=== PATIENT | female | born 1995 | race Caucasian/White ===

== ENCOUNTER 2020-07-11 16:03 | Emergency (ER) | payer OTHER ==
[~2020-07-11] VITALS: Ht 160 cm; Wt 50.2 kg
--- NOTE | 2020-07-11 16:15 | PHYS DOC ---
Adult General Chief Complaint Chief Complaint: ABDOMINAL PAIN IN HPI HPI Patient is a 25-year-old female presents to the emergency department complaining of low abdomen cramping that started last night before she went to bed. Patient reports her cramping pain at a 6/10 on a 1-10 scale. Patient states she is per home test, reporting her last menstrual cycle ended on May 14. Patient states this could be her second and has 1 child, reports problems with miscarriage concerns during her first however had healthy baby at 39-1/2 weeks 3 years ago. Patient reports today when she found out she was she went to the [facility] who directed her straight to the emergency department for a work-up concerning her cramping during . Patient denies vaginal discharge, denies STI concerns, complains of increased frequency for the past 3 days. Denies seeing blood in he r urine. Patient states she is nauseated. Denies vomiting or diarrhea, patient states she has had problems with constipation most of her life. Patient denies any family history of PCOS, vaginal or uterine or cervical cancers. Review of Systems Review of Systems 14 body systems of review of systems have been reviewed. See HPI for pertinent positives and negative responses, otherwise all other systems are negative, nonpertinent or noncontributory. Allergies Allergies Allergies Coded Allergies Type Severity Reaction Last Updated Verified No Known Drug Allergies 07/11/20 No Physical Exam Physical Exam Constitutional: Well developed, well nourished, no acute distress, non-toxic appearance. 25-year-old female in no apparent distress. HENT: Normocephalic, atraumatic, bilateral external ears normal, oropharynx moist, no oral exudates, nose normal. Oropharynx moist, pink, no signs of infectious process appreciated, bilateral TMs within normal limits, no drainage from bilateral external auditory canals, bilateral nasal turbinates moist, nonerythematous, no drainage, no lymphadenopathy of the head or neck appreciated. Eyes: PERRLA, EOMI, conjunctiva normal, no discharge. Neck: Normal range of motion, no tenderness, supple, no stridor. No meningismus signs, no nuchal rigidity appreciated. Cardiovascular:Heart rate regular rhythm, no murmur, heart sounds S1-S2 to auscultation. Lungs & Thorax: Bilateral breath sounds clear to auscultation, all lung hicks, no adventitious lung sounds appreciated. Abdomen: Bowel sounds normal, soft, no tenderness, no masses, no pulsatile masses. Pain to low pelvic area just above the symphysis pubis. Skin: Warm, dry, no erythema, no rash. Back: No CVA tenderness on the left or right, low back pain to palpation to the left and right of lumbar spine, no midline spinal tenderness appreciated. Extremities: No tenderness, no cyanosis, no clubbing, ROM intact, no edema. Distal cap refill less than 2 seconds, +2/4 pulses. Neurologic: Alert and oriented X 3, normal motor function, normal sensory function, no focal deficits noted. Psychologic: Affect normal, judgement normal, mood normal. : Pelvic examination performed with female ED nurse at bedside, no rashes lesions or abnormalities of the external vagina or adjacent structures, no discharge noted, speculum exam noted white cheeselike discharge along vaginal arellano, no lesions, erythema appreciated, GC chlamydia and wet prep was obtained, no cervical motion tenderness or left-sided or right-sided adnexal pain appreciated during bimanual exam. EKG EKG [] Radiology/Procedures Radiology/Procedures PATIENT: YAKOV LANDRY BACCOUNT: [id number] : 1995 LOCATION: ER AGE: 25 SEX: F EXAM STATUS: REG ER ORD. PHYSICIAN: GERI HENSLEY APRN REASON: LOW PELVIC CRAMPING 6 WKS PREG PROCEDURE: OB <14 WKS W/TV Exam: Ultrasound OB less than 14 weeks Indication: Lower pelvic pain, cramping for 6 weeks Technique: Real-time grayscale and color Doppler images of the pelvis were obtained by the department cut in station operator. Comparisons: None FINDINGS: Uterus measures 9.7 x 6.9 x 6.4 cm. Within the endometrium there is a gestational sac with yolk sac and pole. Ko Vaya-rump length measured at 1.0 cm corresponding to 7 weeks 0 days gestation. heart rate measured at 133 bpm. Right ovary measures 4.3 x 2.6 x 1.9 cm. Left ovary measures 2.0 x 1.9 x 1.8 cm. Vascular flow identified within the ovaries bilaterally. No free fluid identified in the pelvis. IMPRESSION: 1. Single live intrauterine gestation measuring 7 weeks 0 days by current ultrasound. 2. Dedicated survey is recommended at 18-20 weeks gestation. Electronically signed by: Jaylene Goins MD (07/11/2020 5:15 PM) [facility] DICTATED AND SIGNED BY: JAYLENE GOINS MD DATE: 07/11/201712 CC: GERI HENSLEY APRN; EMERGENCY,DEPARTMENT; NON,STAFF ~MTH0 0 Heart Score C/O Chest Pain: No Risk Factors: Risk Factors: DM, Current or recent (<one month) smoker, HTN, HLP, family history of CAD, obesity. Risk Scores: Risk Factors: DM, Current or recent (<one month) smoker, HTN, HLP, family history of CAD, obesity. Course & Med Decision Making Course & Med Decision Making Pertinent Labs and Imaging studies reviewed. (See chart for details) 25-year-old female, vital signs reviewed, presents emergency department concern of low abdominal cramping during . Physical examination concerning for STI versus UTI versus threatened miscarriage, a urinalysis assay was ordered, lab work with beta hCG quant, CBC, BMP, OB less than 14 weeks ultrasound study. STI cultures obtained during pelvic examination wet prep, GC/chlamydia. Radiology report of ultrasound study shows 7-week IUP, no other abnormalities noted per radiology interpretation. Patient is wet prep negative, will start patient on vitamin, as needed Zofran on for nausea, will give patient follow-up SENIOR SALES COMPENSATION ANALYST. Diagnosis abdominal cramping, first trimester , nausea. Patient gave verbal understanding of discharge home instructions, prescription instructions, follow-up with SENIOR SALES COMPENSATION ANALYST soon, return to ER precautions or concerns, was discharged home without incident. Dragon Disclaimer Dragon Disclaimer This electronic medical record was generated, in whole or in part, using a voice recognition dictation system. Departure Departure: Impression: Primary Impression: First trimester Additional Impressions: Pelvic cramping Nausea and vomiting in Disposition: 01 DC HOME SELF CARE/HOMELESS Condition: GOOD Referrals: NON,STAFF (PCP) GERI CHAVARRIA MD Patient Instructions: ABCs of , Abdominal Pain During Additional Instructions: We have performed an ultrasound on you today, it shows a normal intrauterine approximately 7 weeks along, your beta hCG is 63,[phone], please give this number to your SENIOR SALES COMPENSATION ANALYST on your appointment this week. I have given you the name of an SENIOR SALES COMPENSATION ANALYST in the event that you are unable to secure an SENIOR SALES COMPENSATION ANALYST appointment. Please return to the emergency department for worsening symptoms or other concerns. Please take vitamin daily, you may use Zofran as needed as needed for nausea. Please let your SENIOR SALES COMPENSATION ANALYST know that you are on these medications. Please take MiraLAX twice a day for constipation problems. EMERGENCY DEPARTMENT GENERAL DISCHARGE INSTRUCTIONS Thank you for coming to [facility] (ED) today and trusting us with you care. We trust that you had a positivie experience in our Emergency Department. If you wish to speak to the department management, you may call the director at [phone]. YOUR FOLLOW UP INSTRUCTIONS ARE FOLLOWS: 1. Do you have a private Doctor? If you do not have a private doctor, please ask for a resource list of physicians or clinics that may be able to assist you with follow up care. 2. The Emergency Physician has interpreted your x-rays. The X-Ray specialist will also review them. If there is a change in the findings, you will be notified in 48 hours when at all possible. 3. A lab test or culture has been done, your results will be reviewed and you will be notified if you need a change in treatment. ADDITIONAL INSTRUCTIONS AND INFORMATION: 1. Your care today has been supervised by a physician who is specially trained in emergency care. Many problems require more than one evaluation for a complete diagnosis and treatment. We recommend that you schedule your follow up appointment as recommended to ensure complete treatment of you illness or injury. If you are unable to obtain follow up care and continue to have a problem, or if your condition worsens, we recommend that you return to the ED. 2. We are not able to safely determine your condition over the phone nor are we able to give sound medical advice over the phone. For these safety reasons, if you call for medical advice we will ask you to come to the ED for further evaluation. 3. If you have any questions regarding these discharge instructions please call the ED at [phone]. SAFETY INFORMATION: In the interest of safety, wellness, and injury prevention; we encourage you to wear your sealbelt, if you smoke; quite smoking, and we encourage family to use a protective helmet for bicycling and other sporting events that present an increased risk for head injury. IF YOUR SYMPTOMS WORSEN OR NEW SYMPTOMS DEVELOP, OR YOU HAVE CONCERNS ABOUT YOUR CONDITION; OR IF YOUR CONDITION WORSENS WHILE YOU ARE WAITING FOR YOUR FOLLOW UP APPOINTMENT; EITHER CONTACT YOUR PRIMARY CARE DOCTOR, THE PHYSICIAN WHOSE NAME AND NUMBER YOU WERE GIVEN, OR RETURN TO THE ED IMMEDIATELY. Scripts Polyethylene Glycol 3350 (MIRALAX) 119 Gm Powder 17 GM PO BID for constipation, #527 GM 0 Refills dissolve in water Prov: GERI HENSLEY APRN 07/11/20 Ondansetron (ONDANSETRON ODT) 4 Mg Tab.rapdis 1 TAB PO PRN Q6-8HRS for NAUSEA, #16 TAB 0 Refills Prov: GERI HENSLEY APRN 07/11/20 Pnv With Ca,No.72/Iron,Carb/Fa ( PLUS IRON TABLET) 1 Each Tablet 1 TAB PO DAILY for for 30 Days, #30 TAB 0 Refills Prov: GERI HENSLEY APRN 07/11/20 Problem Qualifiers GERI HENSLEY APRN Jul 11, 2020 16:15
[2020-07-11 17:07] LABS: BACTERIA,URINE FEW /HPF (0-FEW); BILIRUBIN,URINE NEG (NEG); CLARITY,URINE CLEAR; COLOR,URINE YELLOW; GLUCOSE,URINE NEG (NEG); NITRITE,URINE NEG (NEG); RBC,URINE 0 /HPF (0-2); SQUAMOUS EPITHELIAL CELL,UR MOD /LPF; WBC,URINE OCC /HPF (0-4)
--- NOTE | 2020-07-11 17:18 | RAD ---
Exam: Ultrasound OB less than 14 weeks Indication: Lower pelvic pain, cramping for 6 weeks Technique: Real-time grayscale and color Doppler images of the pelvis were obtained by the department certified flight instructor. Comparisons: None FINDINGS: Uterus measures 9.7 x 6.9 x 6.4 cm. Within the endometrium there is a gestational sac with yolk sac a nd pole. Garretson-rump length measured at 1.0 cm corresponding to 7 weeks 0 days gestation. heart rate measured at 133 bpm. Right ovary measures 4.3 x 2.6 x 1.9 cm. Left ovary measures 2.0 x 1.9 x 1.8 cm. Vascular flow identified within the ovaries bilaterally. No free fluid identified in the pelvis. IMPRESSION: 1. Single live intrauterine gestation measuring 7 weeks 0 days by current ultrasound. 2. Dedicated survey is recommended at 18-20 weeks gestation. Electronically signed by: Germania Zhang MD (07/11/2020 5:15 PM) [facility]
[2020-07-11] MEDS ORDERED: ONDANSETRON ODT 4 MG TAB.RAPDIS ONE (17:22)
[2020-07-11] MEDS ORDERED: ONDANSETRON ODT 4 MG TAB.RAPDIS PO ONE (17:30)
[2020-07-11 17:51] LABS: BASO % 0 % (0-3); EOS # 0.1 x10^3/uL (0.0-0.7); EOS % 2 % (0-3); HEMATOCRIT 39.7 % (36.0-47.0); HEMOGLOBIN 13.6 g/dL (12.0-15.5); LYMPH % 29 % (24-48); MEAN CORPUSCULAR HEMOGLOBIN 33 pg (25-35); MEAN CORPUSCULAR HGB CONC 34 g/dL (31-37); MEAN CORPUSCULAR VOLUME 97 fL (79-100); MONO # 0.6 x10^3/uL (0.0-1.1); MONO % 8 % (0-9); NEUT # 4.2 x10^3uL (1.8-7.7); NEUT % 61 % (31-73); PLATELET COUNT 202 x10^3/uL (140-400); RED CELL DISTRIBUTION WIDTH 12.5 % (11.5-14.5); WHITE BLOOD COUNT 6.9 x10^3/uL (4.0-11.0)
[2020-07-11 18:04] LABS: CALCIUM 8.6 mg/dL (8.5-10.1); CREATININE 0.6 mg/dL (0.6-1.0); GFR 121.8
[2020-07-11 19:10] VITALS: BP 101/52
[2020-07-11] MEDS ORDERED: ONDA4TAB12 PO (19:10)
[2020-07-11] MEDS ORDERED: PNV1TABL34 PO (19:10)
[2020-07-11] MEDS ORDERED: POLY119P4 PO (19:10)
[2020-07-14 20:21] LABS: CHLAMYDIA PROBE Negative (Negative)
== END 2020-07-11 19:16 | disposition home or self-care (01) ==
LOC: ER 16:03
DX: O21.9 Vomiting of pregnancy, unspecified (principal); O26.891 Other specified pregnancy related conditions, first trimester; R10.2 Pelvic and perineal pain; Z3A.01 Less than 8 weeks gestation of pregnancy
CPT/HCPCS: 36415; 76801; 76817; 80048; 81001; 81025; 84702; 85025; 87491; 87591; 99284; Q0111; Q0162

== ENCOUNTER 2020-10-23 18:14 | Emergency (ER) | payer OTHER ==
[~2020-10-23] VITALS: Ht 160 cm; Wt 58.7 kg
[~2020-10-23 18:14] MED LIST: ONDA4TAB12 PO; PNV1TABL34 PO; POLY119P4 PO
--- NOTE | 2020-10-23 18:43 | PHYS DOC ---
Past History Past Medical History: No Pertinent History Past Surgical History: No Surgical History Alcohol Use: None General Adult HPI: HPI: " We all got sick after eating at [facility] .. on ..my had it.. but he got over it.. It manily diarrhea.. but I am 21 week .. We just moved it from [place].."..." we were not eventually put on the fourth.. " " I went to urgent care and they told me to come here.." Patient is a 25 year old female dependent who presents with abdomen pain, diarrhea, and 21 weeks gravid. Hx. G2, T1. Patient recently moved from [place]. This is her second . Patient does feel active movement. Patient states her stools are somewhat watery. Patient has been somewhat nauseated and has had poor intake. Pt. [facility] with [facility] and plans to deliver at [facility]. had same symptoms but his complaints resolved. Patient had presented to urgent care they advised her to come to the emergency department. Patient is on care. Patient goes to women[facility] care who delivers at [facility]. Urgent care did not do Covid swab. They advised her to get it done at the emergency department. She has not been vaccinated nor her . Review of Systems: Review of Systems: Constitutional: Denies fever or chills Eyes: Denies change in visual acuity HENT: Denies nasal congestion or sore throat Respiratory: Denies cough or shortness of breath Cardiovascular: Denies chest pain or edema GI: Complains of crampy abdominal pain, nausea, vomiting, and diarrhea : Denies dysuria Musculoskeletal: Denies back pain or joint pain Integument: Denies rash Neurologic: Denies headache, focal weakness or sensory changes Endocrine: Denies polyuria or polydipsia Lymphatic: Denies swollen glands Psychiatric: Denies depression or anxiety Family History: Family History: recently had a GI illness Current Medications: Current Meds: See nursing for home meds Allergies: Allergies: Allergies Coded Allergies Type Severity Reaction Last Updated Verified No Known Drug Allergies 07/11/20 No Physical Exam: PE: Constitutional: Well developed, well nourished, mild distress, non-toxic appe arance. [] HENT: Normocephalic, atraumatic, bilateral external ears normal, oropharynx dry, no oral exudates, nose normal. [] Eyes: PERRLA, EOMI, conjunctiva normal, no discharge. [] Neck: Normal range of motion, no tenderness, supple, no stridor. [] Cardiovascular:Heart rate regular rhythm, no murmur [] Lungs & Thorax: Bilateral breath sounds equal apex on auscultation [] Abdomen: Bowel sounds hyperactive, soft, mild generalized tenderness, no masses, no pulsatile masses. movements noted.. heart rate 150s Skin: Warm, dry, no erythema, no rash. Poor turgor Back: No tenderness, no CVA tenderness. [] Extremities: No tenderness, no cyanosis, no clubbing, ROM intact, no edema. No cording. Neurologic: Alert and oriented X 3, normal motor function, normal sensory function, no focal deficits noted. DTRs +2 patella brachial. Psychologic: Affect anxious, judgement normal, mood normal. [] EKG: EKG: [] Radiology/Procedures: Radiology/Procedures: [] Heart Score: C/O Chest Pain: N/A Risk Factors: Risk Factors: DM, Current or recent (<one month) smoker, HTN, HLP, family history of CAD, obesity. Risk Scores: Score 0 - 3: 2.5% MACE over next 6 weeks - Discharge Home Score 4 - 6: 20.3% MACE over next 6 weeks - Admit for Clinical Observation Score 7 - 10: 72.7% MACE over next 6 weeks - Early Invasive Strategies Course & Med Decision Making: Course & Med Decision Making Pertinent Labs and Imaging studies reviewed. (See chart for details) Patient to follow-up Covid test. Patient follow-up urine results. Patient follow-up primary care. Patient continue vitamins. Recommend patient be on a clear fluid diet for the next 2 days. No solids no milk products. Zofran 8 mg at 4 times a day for nausea and vomiting. Keep follow-up with OB. Return if any concerns. May take Tylenol for pain. Impression: 1. Acute gastroenteritis 2. Gravid 21 weeks-Second 3. Dehydration [] Dragon Disclaimer: Dragon Disclaimer: This electronic medical record was generated, in whole or in part, using a voice recognition dictation system. Departure Departure: Referrals: NON,STAFF (PCP) Abi Disclaimer This chart was dictated in whole or in part using Voice Recognition software in a busy, high-work load, and often noisy Emergency Department environment. It m ay contain unintended and wholly unrecognized errors or omissions. DANNY CONTRERAS MD Oct 23, 2020 18:43
[2020-10-23] MEDS ORDERED: FAMOTIDINE 20 MG/2 ML VIAL IVP ONE (18:45)
[2020-10-23] MEDS ORDERED: ONDANSETRON PF 4 MG/2 ML VIAL. IVP ONE (18:45)
[2020-10-23] MEDS ORDERED: IV RINGERS SOLUTION,LACTATED 1,000 ML IV SCH ×2 (18:45)
[2020-10-23 19:27] LABS: BASO % 0 % (0-3); EOS # 0.1 x10^3/uL (0.0-0.7); EOS % 1 % (0-3); HEMATOCRIT 35.3 % (36.0-47.0); HEMOGLOBIN 12.3 g/dL (12.0-15.5); LYMPH # 1.2 x10^3/uL (1.0-4.8); LYMPH % 20 % (24-48); MEAN CORPUSCULAR HEMOGLOBIN 33 pg (25-35); MEAN CORPUSCULAR HGB CONC 35 g/dL (31-37); MEAN CORPUSCULAR VOLUME 95 fL (79-100); MONO # 0.5 x10^3/uL (0.0-1.1); MONO % 8 % (0-9); NEUT # 4.1 x10^3uL (1.8-7.7); NEUT % 71 % (31-73); PLATELET COUNT 188 x10^3/uL (140-400); RED BLOOD COUNT 3.71 x10^6/uL (3.50-5.40); RED CELL DISTRIBUTION WIDTH 12.8 % (11.5-14.5); WHITE BLOOD COUNT 5.8 x10^3/uL (4.0-11.0)
[2020-10-23 19:31] LABS: CALCIUM 8.7 mg/dL (8.5-10.1); CREATININE 0.6 mg/dL (0.6-1.0); GFR 121.8; POTASSIUM 3.8 mmol/L (3.5-5.1)
[2020-10-23 19:37] LABS: ALBUMIN 2.9 g/dL (3.4-5.0); DIRECT BILIRUBIN 0.1 mg/dL (0.0-0.2); TOTAL BILIRUBIN 0.3 mg/dL (0.2-1.0); TOTAL PROTEIN 6.5 g/dL (6.4-8.2)
[2020-10-23 20:02] LABS: BARBITURATES NEG (NEG); BENZODIAZEPINES NEG (NEG); CANNABINOIDS NEG (NEG); COCAINE NEG (NEG); METHADONE NEG (NEG); OPIATES POS (NEG); PHENCYCLIDINE NEG (NEG)
[2020-10-23 20:04] LABS: AMPHETAMINE/METHAMPHETAMINE NEG (NEG)
[2020-10-23 20:22] LABS: BILIRUBIN,URINE NEG (NEG); CLARITY,URINE CLEAR; COLOR,URINE AMBER; GLUCOSE,URINE NEG (NEG)
[2020-10-23 20:23] LABS: NITRITE,URINE NEG (NEG)
[2020-10-23 20:24] LABS: BACTERIA,URINE FEW /HPF (0-FEW); RBC,URINE 0 /HPF (0-2); SQUAMOUS EPITHELIAL CELL,UR FEW /LPF; WBC,URINE 0 /HPF (0-4)
[2020-10-23 21:18] VITALS: BP 106/48
== END 2020-10-23 21:19 | disposition home or self-care (01) ==
LOC: ER 18:14
DX: O99.612 Diseases of the digestive system complicating pregnancy, second trimester (principal); O99.282 Endocrine, nutritional and metabolic diseases complicating pregnancy, second trimester; K52.9 Noninfective gastroenteritis and colitis, unspecified; E86.0 Dehydration; Z20.822 Contact with and (suspected) exposure to COVID-19; Z3A.21 21 weeks gestation of pregnancy
CPT/HCPCS: 36415; 80048; 80076; 80307; 81001; 83690; 84702; 85025; 85730; 86850; 86900; 86901; 96361; 96374; 96375; 99284; C9803; J2405; J3490; J7120; U0003

== ENCOUNTER 2021-01-19 05:39 | Emergency (ER) | payer OTHER ==
[~2021-01-19] VITALS: Ht 160 cm; Wt 69.6 kg
[2021-01-19 05:45] VITALS: BP 99/60
[2021-01-19] MEDS ORDERED: HYDROcodone/APAP 5/325MG 1 TAB TABLET ONE (06:13)
[2021-01-19] MEDS ORDERED: AMOXICILLIN/K CLAV 875/125MG TABLET. ONE (06:13)
[2021-01-19] MEDS ORDERED: ONDANSETRON ODT 4 MG TAB.RAPDIS ONE (06:13)
[2021-01-19] MEDS ORDERED: HYDROcodone/APAP 5/325MG 1 TAB TABLET PO ONE (06:15)
[2021-01-19] MEDS ORDERED: AMOXICILLIN/K CLAV 875/125MG TABLET. PO ONE (06:15)
[2021-01-19] MEDS ORDERED: ONDANSETRON ODT 4 MG TAB.RAPDIS PO ONE (06:15)
[2021-01-19] MEDS ORDERED: AMOX1TAB61 PO (06:21)
[2021-01-19] MEDS ORDERED: HYDR-2759 PO (06:21)
--- NOTE | 2021-01-19 06:23 | PHYS DOC ---
Past History Past Medical History: No Pertinent History Past Surgical History: No Surgical History Alcohol Use: None General Adult EDM: Chief Complaint: DENTAL PROBLEM HPI: HPI: 25-year-old female at 36 weeks presents with right lower dental pain. The patient had a tooth extracted on and she has had pain since that time. She has been taking Tylenol but it is not working. The pain has made her nauseated and she has not been able to eat for at least the last 24 hours. She is trying to stay hydrated drinking small amounts of water and eating popsicles. She had a very difficult time sleeping last night and just decided to come in. The patient's also had swelling of the right side of her face. She is concerned about infection. She denies fever or chills. She has no other complaints at this time. Review of Systems: Review of Systems: Constitutional: Denies fever or chills Eyes: Denies change in visual acuity HENT: Denies nasal congestion or sore throat. Dental pain Respiratory: Denies cough or shortness of breath Cardiovascular: Denies chest pain or edema GI: Denies abdominal pain, nausea, vomiting, bloody stools or diarrhea : Denies dysuria Musculoskeletal: Denies back pain or joint pain Integument: Denies rash Neurologic: Denies headache, focal weakness or sensory changes Endocrine: Denies polyuria or polydipsia Lymphatic: Denies swollen glands Psychiatric: Denies depression or anxiety Current Medications: Current Meds: Current Medications Medications (Trade) Dose Ordered Sig/Iveth Start Time Stop Time Status Last Admin Dose Admin Acetaminophen/ Hydrocodone Bitart (Lortab 5/325) 1 tab STK-MED ONCE 01/19/21 06:13 01/19/21 06:14 DC Amoxicillin/ Clavulanate Potassium (Augmentin 875/ 125mg) 1 tab 1X ONCE 01/19/21 06:15 01/19/21 06:16 UNV Ondansetron HCl (Zofran Odt) 4 mg 1X ONCE 01/19/21 06:15 01/19/21 06:16 UNV Allergies: Allergies: Allergies Coded Allergies Type Severity Reaction Last Updated Verified No Known Drug Allergies 07/11/20 No Physical Exam: PE: Constitutional: Well developed, well nourished, no acute distress, non-toxic ap pearance. [] HENT: Normocephalic, atraumatic, bilateral external ears normal, oropharynx moist, no oral exudates, nose normal. Partially retained tooth #30 with surrounding erythema. No obvious abscess. [] Eyes: PERRLA, EOMI, conjunctiva normal, no discharge. [] Neck: Normal range of motion, no tenderness, supple, no stridor. [] Cardiovascular: Heart rate regular rhythm, no murmur [] Lungs & Thorax: Bilateral breath sounds clear to auscultation [] Abdomen: Bowel sounds normal, soft, no tenderness, no masses, no pulsatile masses. [] Skin: Warm, dry, no erythema, no rash. [] Back: No tenderness, no CVA tenderness. [] Extremities: No tenderness, no cyanosis, no clubbing, ROM intact, no edema. [] Neurologic: Alert and oriented X 3, normal motor function, normal sensory function, no focal deficits noted. [] Psychologic: Affect normal, judgement normal, mood normal. [] EKG: EKG: [] Radiology/Procedures: Radiology/Procedures: [] Heart Score: C/O Chest Pain: N/A Risk Factors: Risk Factors: DM, Current or recent (<one month) smoker, HTN, HLP, family history of CAD, obesity. Risk Scores: Score 0 - 3: 2.5% MACE over next 6 weeks - Discharge Home Score 4 - 6: 20.3% MACE over next 6 weeks - Admit for Clinical Observation Score 7 - 10: 72.7% MACE over next 6 weeks - Early Invasive Strategies Course & Med Decision Making: Course & Med Decision Making Pertinent Labs and Imaging studies reviewed. (See chart for details) The patient is in obvious discomfort. She told me that she took 1 Advil 2 separate times out of desperation from the pain. It helped more than the Tylenol but she knows that she is not supposed to take Advil. She does not know what else to do. It appears that they did not fully extract the tooth. I see what appears to be a fragment of it remaining. She does have erythematous gums in that area and I am concerned for infection. I will treat her with Augmentin. I will also give the patient 4 mg of Zofran and 1 Rubicon 5/325 in the ER. I will give her a short course of Rubicon for home. She understands that she should use these as sparingly as possible. She will follow-up with the dentist today. [] Abi Disclaimer: Abi Disclaimer: This electronic medical record was generated, in whole or in part, using a voice recognition dictation system. Departure Departure: Impression: Primary Impression: Pain, dental Disposition: HOME / SELF CARE / HOMELESS Condition: STABLE Referrals: PCP,NO (PCP) Patient Instructions: Dental Pain, [id number] Scripts Amoxicillin/Potassium Clav (AUGMENTIN 875-125 TABLET) 1 Each Tablet 1 TAB PO BID for dental infection for 7 Days, #14 TAB 0 Refills Prov: CM LONG DO 01/19/21 Hydrocodone/Acetaminophen (Hydrocodone-Acetamin 5-325 mg) 1 Each Tablet 1 EACH PO Q4-6HRS PRN for PAIN, #10 TAB Prov: CM LONG DO 01/19/21 CM LONG DO Jan 19, 2021 06:23
== END 2021-01-19 06:35 | disposition home or self-care (01) ==
LOC: ER 05:39
DX: O99.613 Diseases of the digestive system complicating pregnancy, third trimester (principal); K08.89 Other specified disorders of teeth and supporting structures; Z3A.36 36 weeks gestation of pregnancy
CPT/HCPCS: 99284; Q0162

== ENCOUNTER 2021-01-22 14:45 | Emergency (ER) | payer OTHER ==
[~2021-01-22] VITALS: Ht 160 cm; Wt 69.6 kg
[~2021-01-22 14:45] MED LIST changes: +AMOX1TAB61 PO; +HYDR-2759 PO
[2021-01-22 15:24] VITALS: BP 126/69
[2021-01-22] MEDS ORDERED: LIDOCAINE/EPI/TETRACAINE TOPICAL GEL 3 ML. TP ONE (15:34)
[2021-01-22] MEDS ORDERED: ONDANSETRON ODT 4 MG TAB.RAPDIS ONE (15:34)
[2021-01-22] MEDS: AMOXICILLIN/K CLAV 875/125MG TABLET. PO ONE (15:45)
[2021-01-22] MEDS: ONDANSETRON ODT 4 MG TAB.RAPDIS PO ONE (15:45)
[2021-01-22] MEDS: LIDOCAINE 2% VISCOUS 15 ML SOLUTION. SWSW ONE (15:45)
[2021-01-22] MEDS ORDERED: ONDA4TAB12 PO (16:32)
--- NOTE | 2021-01-22 16:33 | PHYS DOC ---
Past History Past Medical History: No Pertinent History Past Surgical History: Other Additional Past Surgical Histo: oral surgery Alcohol Use: None General Adult EDM: Chief Complaint: DENTAL PROBLEM HPI: HPI: Patient is a 25 year old gravid female who presents with persistent dental pain and new onset nausea and vomiting. Patient was seen here in the department 3 days ago for similar symptoms. She was provided with a prescription for Augmentin. She states that her last 3 doses she has vomited almost immediately. She also states that her pain is not well controlled. She has taken her maximum allowed dose of acetaminophen already today. She has no other complaints. Review of Systems: Review of Systems: ROS negative except as mentioned in HPI. Current Medications: Current Meds: Current Medications Medications (Trade) Dose Ordered Sig/Iveth Start Time Stop Time Status Last Admin Dose Admin Amoxicillin/ Clavulanate Potassium (Augmentin 875/ 125mg) 1 tab 1X ONCE 01/22/21 15:45 01/22/21 15:46 DC Lidocaine HCl (Viscous Lidocaine) 15 ml 1X ONCE 01/22/21 15:45 01/22/21 15:46 DC Lidocaine/ Epinephrine (Let (Kese-[id number]-Wrqcd) Gel) 3 ml STK-MED ONCE 01/22/21 15:34 01/22/21 15:35 DC Ondansetron HCl (Zofran Odt) 4 mg STK-MED ONCE 01/22/21 15:34 01/22/21 15:34 DC Allergies: Allergies: Allergies Coded Allergies Type Severity Reaction Last Updated Verified No Known Drug Allergies 07/11/20 No Physical Exam: PE: Constitutional: Patient visibly in pain. Well developed, well nourished, non- toxic appearance. HENT: Normocephalic, atraumatic, bilateral external ears normal, oropharynx moist, right premolar swollen with obvious infection, nose normal. Eyes: PERRLA, EOMI, conjunctiva normal, no discharge. Neck: Normal range of motion, no tenderness, supple, no stridor. Cardiovascular: Heart rate regular rhythm, no murmur. Lungs & Thorax: Bilateral breath sounds clear to auscultation. Neurologic: Alert and oriented X 3, normal motor function, normal sensory function, no focal deficits noted. Current Patient Data: Vital Signs: Vital Signs Date Time Temp Pulse Resp B/P (MAP) Pulse Ox O2 Delivery O2 Flow Rate FiO2 01/22/21 15:24 98.2 112 16 126/69 (88) 98 Room Air Heart Score: C/O Chest Pain: No Course & Med Decision Making: Course & Med Decision Making Pertinent Labs and Imaging studies reviewed. (See chart for details) Patient's biggest concerns today are her uncontrolled pain and new onset nausea/vomiting. She was able to get a hold of her dentist today, and has appointment for tomorrow. Here in the department, she will be given Zofran and then a p.o. challenge to ensure that she can continue taking her prescribed antibiotics. For pain control, viscous lidocaine has given her significant relief. Patient feels comfortable being discharged home with the new treatment plan. She understands the importance of keeping her appointment with her dentist for further management. Patient understands and is agreeable to discharge plan. Abi Disclaimer: Abi Disclaimer: This electronic medical record was generated, in whole or in part, using a voice recognition dictation system. Departure Departure: Impression: Primary Impression: Dental infection Additional Impression: Nausea & vomiting Qualified Codes: R11.2 - Nausea with vomiting, unspecified Referrals: PCP,NO (PCP) Patient Instructions: Dental Pain, Uncy-md-[id number] Scripts Ondansetron (ONDANSETRON ODT) 4 Mg Tab.rapdis 1 TAB PO PRN Q6-8HRS for nausea, #16 TAB Prov: MARGUERITE EMMANUEL 01/22/21 MARGUERITE EMMANUEL Jan 22, 2021 16:33
== END 2021-01-22 16:27 | disposition home or self-care (01) ==
LOC: ER 14:45
DX: K04.7 Periapical abscess without sinus (principal); R11.2 Nausea with vomiting, unspecified
CPT/HCPCS: 99283; Q0162

== ENCOUNTER 2021-02-02 11:46 | Emergency (ER) | payer OTHER ==
[~2021-02-02] VITALS: Ht 160 cm; Wt 68.1 kg
[2021-02-02] MEDS ORDERED: ONDANSETRON PF 4 MG/2 ML VIAL. IVP ONE (12:15)
[2021-02-02] MEDS ORDERED: FAMOTIDINE 20 MG/2 ML VIAL IVP ONE (12:15)
[2021-02-02] MEDS ORDERED: IV NORMAL SALINE 1,000ML 1,000 ML IV ONE (12:15)
[2021-02-02 12:41] LABS: BASO % 0 % (0-3); EOS % 0 % (0-3); HEMATOCRIT 33.7 % (36.0-47.0); HEMOGLOBIN 10.9 g/dL (12.0-15.5); LYMPH # 0.8 x10^3/uL (1.0-4.8); LYMPH % 8 % (24-48); MEAN CORPUSCULAR HEMOGLOBIN 27 pg (25-35); MEAN CORPUSCULAR HGB CONC 32 g/dL (31-37); MEAN CORPUSCULAR VOLUME 82 fL (79-100); MONO # 0.4 x10^3/uL (0.0-1.1); MONO % 4 % (0-9); NEUT # 8.8 x10^3uL (1.8-7.7); NEUT % 88 % (31-73); PLATELET COUNT 242 x10^3/uL (140-400); RED CELL DISTRIBUTION WIDTH 15.8 % (11.5-14.5); WHITE BLOOD COUNT 10.1 x10^3/uL (4.0-11.0)
[2021-02-02 13:00] LABS: CALCIUM 8.7 mg/dL (8.5-10.1); CREATININE 0.5 mg/dL (0.6-1.0); GFR 150.3; POTASSIUM 3.9 mmol/L (3.5-5.1)
--- NOTE | 2021-02-02 13:05 | PHYS DOC ---
Past History Past Medical History: No Pertinent History Past Surgical History: No Surgical History Additional Past Surgical Histo: oral surgery Alcohol Use: None General Adult EDM: Chief Complaint: VOMITING IN HPI: HPI: Patient is a 25 year old gravid female who presents with nausea and vomiting. Patient states that she ate [employer] on Tuesday and had diarrhea that evening. Last night, she ate chicken soup and vomited. She reports bloody red emesis today. Zofran prescribed to her week and a half ago did not help, and she vomited right after taking it. Patient reports she is not able to keep water down either. Patient reports associated "contractions" without vaginal bleeding. Patient is unvaccinated against COVID-19. Patient has no other complaints at this time. Patient was seen by me on 01/22/2021 for dental pain, at which time she was prescribed Zofran so that she could resume taking the antibiotics that were prescribed to her. She reports resolution of those symptoms after seeing her dentist. Review of Systems: Review of Systems: Constitutional: Denies fever or chills Respiratory: Denies cough or shortness of breath Cardiovascular: Denies chest pain or edema GI: See HPI : Denies dysuria, hematuria or vaginal bleeding Musculoskeletal: Denies back pain or joint pain Integument: Denies rash or other skin lesions Neurologic: Denies headache, focal weakness or sensory changes Current Medications: Current Meds: Current Medications Medications (Trade) Dose Ordered Sig/Iveth Start Time Stop Time Status Last Admin Dose Admin Famotidine (Pepcid Vial) 20 mg 1X ONCE 02/02/21 12:15 02/02/21 12:18 DC 02/02/21 12:20 20 MG Ondansetron HCl (Zofran) 4 mg 1X ONCE 02/02/21 12:15 02/02/21 12:18 DC 02/02/21 12:19 4 MG Sodium Chloride 1,000 ml @ 1,000 mls/hr 1X ONCE 02/02/21 12:15 02/02/21 13:14 02/02/21 12:18 1,000 MLS/HR Allergies: Allergies: Allergies Coded Allergies Type Severity Reaction Last Updated Verified No Known Drug Allergies 02/02/21 No Physical Exam: PE: Constitutional: Patient appears uncomfortable in exam room. Well developed, well nourished, no acute distress, non-toxic appearance. Cardiovascular: Elevated heart rate with regular rhythm, no murmur. Lungs & Thorax: Bilateral breath sounds clear to auscultation. Abdomen: Abdomen gravid. Bowel sounds normal, soft, no tenderness, no masses, no pulsatile masses. Skin: Warm, dry, no erythema, no rash. Back: No tenderness, no CVA tenderness. Current Patient Data: Labs: Laboratory Tests Test 02/02/21 12:20 White Blood Count 10.1 x10^3/uL (4.0-11.0) Red Blood Count 4.10 x10^6/uL (3.50-5.40) Hemoglobin 10.9 g/dL (12.0-15.5) Hematocrit 33.7 % (36.0-47.0) Mean Corpuscular Volume 82 fL (79-100) Mean Corpuscular Hemoglobin 27 pg (25-35) Mean Corpuscular Hemoglobin Concent 32 g/dL (31-37) Red Cell Distribution Width 15.8 % (11.5-14.5) Platelet Count 242 x10^3/uL (140-400) Neutrophils (%) (Auto) 88 % (31-73) Lymphocytes (%) (Auto) 8 % (24-48) Monocytes (%) (Auto) 4 % (0-9) Eosinophils (%) (Auto) 0 % (0-3) Basophils (%) (Auto) 0 % (0-3) Neutrophils # (Auto) 8.8 x10^3uL (1.8-7.7) Lymphocytes # (Auto) 0.8 x10^3/uL (1.0-4.8) Monocytes # (Auto) 0.4 x10^3/uL (0.0-1.1) Eosinophils # (Auto) 0.0 x10^3/uL (0.0-0.7) Basophils # (Auto) 0.0 x10^3/uL (0.0-0.2) Sodium Level 137 mmol/L (136-145) Potassium Level 3.9 mmol/L (3.5-5.1) Chloride Level 103 mmol/L (98-107) Carbon Dioxide Level 23 mmol/L (21-32) Anion Gap 11 (6-14) Blood Urea Nitrogen 5 mg/dL (7-20) Creatinine 0.5 mg/dL (0.6-1.0) Estimated GFR (Cockcroft-Gault) 150.3 BUN/Creatinine Ratio 10 (6-20) Glucose Level 98 mg/dL (70-99) Calcium Level 8.7 mg/dL (8.5-10.1) Total Bilirubin 0.6 mg/dL (0.2-1.0) Aspartate Amino Transf (AST/SGOT) 18 U/L (15-37) Alanine Aminotransferase (ALT/SGPT) 17 U/L (14-59) Alkaline Phosphatase 190 U/L (46-116) Total Protein 6.8 g/dL (6.4-8.2) Albumin 2.6 g/dL (3.4-5.0) Albumin/Globulin Ratio 0.6 (1.0-1.7) Vital Signs: Vital Signs Date Time Temp Pulse Resp B/P (MAP) Pulse Ox O2 Delivery O2 Flow Rate FiO2 02/02/21 11:55 97.8 118 20 124/67 (86) 95 Room Air Heart Score: C/O Chest Pain: No Course & Med Decision Making: Course & Med Decision Making Pertinent Labs and Imaging studies reviewed. (See chart for details) Patient did vomit in the emergency department before being seen by me. Izzy, nurse, reports patient flush emesis before she was able to evaluate for reported blood in vomitus. Patient was provided with IV Zofran, Pepcid and normal saline. Will reevaluate after administration. Patient's daughter and are in the department as well. When she was speaking to her , she states that she feels much better, however when nursing staff asks, she denies symptom improvement. She requests additional fluids multiple times, as it is "the only thing that makes her feel better." She also states she is having "Ingham Vásquez contractions again." Additional 500 mL normal saline as well as Tylenol and Benadryl ordered. Discussed with the patient that due to her gestational age, she should visit [facility] where she plans to deliver if she has any contractions or labor symptoms, as this emergency department has limited resources when it comes to monitoring and care. Lab work is largely unremarkable and consistent with third trimester . PCR Covid swab obtained. Patient instructed to quarantine until resulted. Patient understands and is agreeable. Dragon Disclaimer: Dragon Disclaimer: This electronic medical record was generated, in whole or in part, using a voice recognition dictation system. Departure Departure: Impression: Primary Impression: Hyperemesis gravidarum Disposition: 01 HOME / SELF CARE / HOMELESS Condition: STABLE Referrals: PCP,NO (PCP) Patient Instructions: Diet - Hyperemesis Gravidarum, Hyperemesis Gravidarum Additional Instructions: EMERGENCY DEPARTMENT GENERAL DISCHARGE INSTRUCTIONS Thank you for coming to [facility] (ED) today and trusting us with you care. We trust that you had a positive experience in our Emergency Department. If you wish to speak to the department management, you may call the director at [phone]. YOUR FOLLOW UP INSTRUCTIONS ARE FOLLOWS: 1. Do you have a private Doctor? If you do not have a private doctor, please ask for a resource list of physicians or clinics that may be able to assist you with follow up care. 2. A lab test or culture has been done, your results will be reviewed and you will be notified if you need a change in treatment. ADDITIONAL INSTRUCTIONS AND INFORMATION: 1. Your care today has been supervised by a physician who is specially trained in emergency care. Many problems require more than one evaluation for a complete diagnosis and treatment. We recommend that you schedule your follow up appointment as recommended to ensure complete treatment of you illness or injury. If you are unable to obtain follow up care and continue to have a problem, or if your condition worsens, we recommend that you return to the ED. 2. We are not able to safely determine your condition over the phone nor are we able to give sound medical advice over the phone. For these safety reasons, if you call for medical advice we will ask you to come to the ED for further evaluation. 3. If you have any questions regarding these discharge instructions please call the ED at [phone]. SAFETY INFORMATION: In the interest of safety, wellness, and injury prevention; we encourage you to wear your sealbelt, if you smoke; quite smoking, and we encourage family to use a protective helmet for bicycling and other sporting events that present an increased risk for head injury. IF YOUR SYMPTOMS WORSEN OR NEW SYMPTOMS DEVELOP, OR YOU HAVE CONCERNS ABOUT YOUR CONDITION; OR IF YOUR CONDITION WORSENS WHILE YOU ARE WAITING FOR YOUR FOLLOW UP APPOINTMENT; EITHER CONTACT YOUR PRIMARY CARE DOCTOR, THE PHYSICIAN WHOSE NAME AND NUMBER YOU WERE G IVEN, OR RETURN TO THE ED IMMEDIATELY. Scripts Ondansetron (ONDANSETRON ODT) 4 Mg Tab.rapdis 1 TAB PO PRN Q6-8HRS for hyperemesis gravidarum, #20 TAB Prov: MARGUERITE EMMANUEL 02/02/21 MARGUERITE EMMANUEL Feb 02, 2021 13:05
[2021-02-02 13:15] LABS: ALBUMIN 2.6 g/dL (3.4-5.0); ALBUMIN/GLOBULIN RATIO 0.6 (1.0-1.7); TOTAL BILIRUBIN 0.6 mg/dL (0.2-1.0); TOTAL PROTEIN 6.8 g/dL (6.4-8.2)
[2021-02-02] MEDS ORDERED: diphenhydrAMINE 50 MG/ML VIAL ONE (13:45)
[2021-02-02] MEDS ORDERED: diphenhydrAMINE 50 MG/ML VIAL IVP ONE (13:45)
[2021-02-02] MEDS ORDERED: IV NORMAL SALINE 500ML 500 ML IV ONE (13:45)
[2021-02-02] MEDS ORDERED: ACETAMINOPHEN 325 MG TABLET PO ONE ×2 (13:45)
[2021-02-02] MEDS ORDERED: ONDA4TAB12 PO (16:06)
[2021-02-02 16:19] VITALS: BP 99/40
== END 2021-02-02 16:19 | disposition home or self-care (01) ==
LOC: ER 11:46
DX: O21.0 Mild hyperemesis gravidarum (principal); Z20.822 Contact with and (suspected) exposure to COVID-19; Z3A.00 Weeks of gestation of pregnancy not specified
CPT/HCPCS: 36415; 80053; 85025; 96361; 96374; 96375; 99285; C9803; J1200; J2405; J3490; J7030; J7040; U0003

== ENCOUNTER 2021-06-03 00:14 | Emergency (ER) | payer OTHER ==
[~2021-06-03] VITALS: Ht 160 cm; Wt 66.3 kg
--- NOTE | 2021-06-03 00:35 | PHYS DOC ---
Past History Past Medical History: No Pertinent History Past Surgical History: No Surgical History Additional Past Surgical Histo: oral surgery Alcohol Use: None General Adult HPI: HPI: ".. I keep getting these urinary tract infections.. yeast infections.. " " I am on antibiotics now.. " Patient is a 26 year old female who presents with above hx and complaints of dysuria. Patient reports multiple episodes of urinary tract infection and yeast infections. Patient's 2 term 2. Vaginal deliveries. Patient denies any history immunosuppression. No recent travel. No specific ill contacts. Only 1 lifetime sex partner. No history of STDs. Has had bacterial vaginosis. Patient normally follows with [facility]. Her UTI and yeast infections have been recurrent the past 2 years. 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 Has planned transfer to [place]. Patient has a 4-month-old and a 4-year-old. Review of Systems: Review of Systems: Constitutional: Denies fever or chills Eyes: Denies change in visual acuity HENT: Denies nasal congestion or sore throat Respiratory: Denies cough or shortness of breath Cardiovascular: Denies chest pain or edema GI: Denies abdominal pain, nausea, vomiting, bloody stools or diarrhea : Complains of dysuria Musculoskeletal: Denies back pain or joint pain Integument: Denies rash Neurologic: Denies headache, focal weakness or sensory changes Endocrine: Denies polyuria or polydipsia Lymphatic: Denies swollen glands Psychiatric: Denies depression or anxiety Family History: Family History: Noncontributory presentation Current Medications: Current Meds: See nursing for home meds Allergies: Allergies: Allergies Coded Allergies Type Severity Reaction Last Updated Verified No Known Drug Allergies 02/02/21 No Physical Exam: PE: Constitutional: Well developed, well nourished, reports moderate acute distress, non-toxic appearance. [] HENT: Normocephalic, atraumatic, bilateral external ears normal, oropharynx moist, no oral exudates, nose normal. [] Eyes: PERRLA, EOMI, conjunctiva normal, no discharge. [] Neck: Normal range of motion, no tenderness, supple, no stridor. [] Cardiovascular:Heart rate regular rhythm, no murmur [] Lungs & Thorax: Bilateral breath sounds equal apex on auscultation [] Abdomen: Bowel sounds normal, soft, no tenderness, no masses, no pulsatile masses. No rebound pain. Defers pelvic exam at this time. Skin: Warm, dry, no erythema, no rash. [] Back: No tenderness, no CVA tenderness. [] Extremities: No tenderness, no cyanosis, no clubbing, ROM intact, no edema. [] Neurologic: Alert and oriented X 3, normal motor function, normal sensory function, no focal deficits noted. [] Psychologic: Affect anxious, judgement normal, mood normal. [] EKG: EKG: [] Radiology/Procedures: Radiology/Procedures: [] Heart Score: C/O Chest Pain: N/A Risk Factors: Risk Factors: DM, Current or recent (<one month) smoker, HTN, HLP, family history of CAD, obesity. Risk Scores: Score 0 - 3: 2.5% MACE over next 6 weeks - Discharge Home Score 4 - 6: 20.3% MACE over next 6 weeks - Admit for Clinical Observation Score 7 - 10: 72.7% MACE over next 6 weeks - Early Invasive Strategies Course & Med Decision Making: Course & Med Decision Making Pertinent Labs and Imaging studies reviewed. (See chart for details) Continue to push vitamin C drinks and fluids. Take Tylenol and ibuprofen for discomfort. Take Diflucan 100 mg daily for 3 days after completing antibiotics. Follow-up urine cultures. Return if any concerns. Trial of Pyridium for discomfort. Impression: 1. Dysuria [] Dragon Disclaimer: Dragon Disclaimer: This electronic medical record was generated, in whole or in part, using a voice recognition dictation system. Departure Departure: Referrals: PCP,UNKNOWN (PCP) Scripts Fluconazole (DIFLUCAN) 100 Mg Tablet 100 MG PO DAILY for yeast for 3 Days, #9 TAB Prov: DANNY CONTRERAS MD 06/03/21 Abi Disclaimer This chart was dictated in whole or in part using Voice Recognition software in a busy, high-work load, and often noisy Emergency Department environment. It may contain unintended and wholly unrecognized errors or omissions. DANNY CONTRERAS MD Jun 03, 2021 00:35
[2021-06-03 00:40] VITALS: BP 113/65
[2021-06-03 01:20] LABS: BARBITURATES NEG (NEG); BENZODIAZEPINES NEG (NEG); CANNABINOIDS NEG (NEG); COCAINE NEG (NEG); METHADONE NEG (NEG); OPIATES NEG (NEG); PHENCYCLIDINE NEG (NEG)
[2021-06-03 01:21] LABS: AMPHETAMINE/METHAMPHETAMINE NEG (NEG)
[2021-06-03 01:28] LABS: BACTERIA,URINE FEW /HPF (0-FEW); CLARITY,URINE CLEAR; COLOR,URINE YELLOW; GLUCOSE,URINE NEG (NEG); NITRITE,URINE NEG (NEG); RBC,URINE 0 /HPF (0-2); SQUAMOUS EPITHELIAL CELL,UR MANY /LPF; UROBILINOGEN,URINE 0.2 mg/dL (0.2 mg/dL)
[2021-06-03] MEDS ORDERED: FLUC100T7 PO (01:34)
[2021-06-03] MEDS ORDERED: PHENAZOPYRIDINE 200 MG TABLET. PO ONE (02:00)
== END 2021-06-03 01:47 | disposition home or self-care (01) ==
LOC: ER 00:14
DX: R30.0 Dysuria (principal); Z87.440 Personal history of urinary (tract) infections
CPT/HCPCS: 36415; 80307; 81001; 81025; 99283

== ENCOUNTER 2021-06-18 15:51 | Emergency (ER) | payer OTHER ==
[~2021-06-18] VITALS: Ht 160 cm; Wt 66.3 kg
[~2021-06-18 15:51] MED LIST changes: +FLUC100T7 PO
[2021-06-18 16:15] VITALS: BP 143/98
[2021-06-18] MEDS ORDERED: ONDANSETRON ODT 4 MG TAB.RAPDIS PO ONE (17:00)
[2021-06-18] MEDS ORDERED: IBUPROFEN 600 MG TABLET. PO ONE (17:00)
[2021-06-18] MEDS ORDERED: HYDROcodone/APAP 5/325MG 1 TAB TABLET PO ONE (17:00)
--- NOTE | 2021-06-18 17:27 | PHYS DOC ---
Past History Past Medical History: No Pertinent History (BASSAM CANO APRN) Past Surgical History: No Surgical History Additional Past Surgical Histo: oral surgery (BASSAM CANO APRN) Alcohol Use: None (BASSAM CANO APRN) General Adult EDM: Chief Complaint: Neck Pain HPI: HPI: Patient is a 26-year-old female who presents with left-sided ear pain that radiates down into her neck. Patient states that she turned her head quickly and felt a pop in her left ear. Patient has full range of motion in her neck. Denies fever, no oral exudates seen, denies taking anything at home for pain. Denies medical history. (BASSAM CANO APRN) Review of Systems: Review of Systems: ROS At least 10 ROS systems have been reviewed and are negative except as documented in the HPI. General: Negative except as outlined in HPI above. Skin: Negative except as outlined in HPI above. HEENT: Negative except as outlined in HPI above. Neck: Negative except as outlined in HPI above. Respiratory: Negative except as outlined in HPI above.. Cardiovascular: Negative except as outlined in HPI above. Abdomen: Negative except as outlined in HPI above. : Negative except as outlined in HPI above. Back/MSK: Negative except as outlined in HPI above. Neuro: Negative except as outlined in HPI above. Psych: Negative except as outlined in HPI above. (BASSAM CANO APRN) Current Medications: Current Meds: Current Medications Medications (Trade) Dose Ordered Sig/Iveth Start Time Stop Time Status Last Admin Dose Admin Acetaminophen/ Hydrocodone Bitart (Lortab 5/325) 1 tab 1X ONCE 06/18/21 17:00 06/18/21 17:01 DC 06/18/21 17:00 1 TAB Ibuprofen (Motrin) 600 mg 1X ONCE 06/18/21 17:00 06/18/21 17:01 DC 06/18/21 17:00 600 MG Ondansetron HCl (Zofran Odt) 4 mg 1X ONCE 06/18/21 17:00 06/18/21 17:01 DC 06/18/21 17:00 4 MG (BASSAM CANO APRN) Allergies: Allergies: Allergies Coded Allergies Type Severity Reaction Last Updated Verified No Known Drug Allergies 02/02/21 No (BASSAM CANO APRN) Physical Exam: PE: Constitutional: Well developed, well nourished, no acute distress, non-toxic appearance. [] HENT: bilateral external ears normal, oropharynx moist, red, no oral exudates, otalgia Eyes: PERRLA, EOMI, conjunctiva normal, no discharge. [] Neck: Normal range of motion, no tenderness Cardiovascular:Heart rate regular rhythm, no murmur [] Lungs & Thorax: Bilateral breath sounds clear to auscultation [] Abdomen: Bowel sounds normal, soft, no tenderness, no masses, no pulsatile masses. [] Skin: Warm, dry, no erythema, no rash. [] Back: No tenderness, no CVA tenderness. [] Extremities: No tenderness, no cyanosis, no clubbing, ROM intact, no edema. [] Neurologic: Alert and oriented X 3, normal motor function, normal sensory function, no focal deficits noted. [] Psychologic: Affect normal, judgement normal, mood normal. [] (BASSAM CANO APRN) Current Patient Data: Vital Signs: Vital Signs Date Time Temp Pulse Resp B/P (MAP) Pulse Ox O2 Delivery O2 Flow Rate FiO2 06/18/21 17:00 16 98 06/18/21 16:15 98.0 83 143/98 (113) Room Air (BASSAM CANO APRN) EKG: EKG: [] (BASSAM CANO APRN) Radiology/Procedures: Radiology/Procedures: []PQRS Compliance Statement: One or more of the following individualized dose reduction techniques were utilized for this examination: 1. Automated exposure control 2. Adjustment of the mA and/or kV according to patient size 3. Use of iterative reconstruction technique CT NECK SOFT TISSUE WITHOUT CONTRAST Clinical Indication: Reason: neck pain / Comparison: None. TECHNIQUE: Helical CT imaging of the soft tissues of the neck is performed without IV contrast. Findings: Sensitivity for detection of pathology is significantly decreased without IV contrast. The thyroid and submandibular glands are symmetric. The parotid glands are asymmetric. The right is predominantly fatty. There is haziness of the fat of the left parotid gland. This haziness could be due to inflammation suggesting parotitis. A sialolith is not seen. Alternatively the asymmetry could be due to fatty replacement of the right parotid gland. It is possible these findings are incidental or normal for this patient in the absence of localized pain or swelling. The epiglottis, aryepiglottic folds, vallecula, and piriform sinuses are normal. There are a few subcentimeter cervical lymph nodes. There is no cervical adenopathy. The lung apices are clear. There is dental cavity of a right maxilla molar. There is no obvious periodontal abscess. The ostiomeatal complexes are patent. The cervical spine alignment is maintained. IMPRESSION: 1. There is dental cavity of a right maxilla molar. 2. The parotid glands are asymmetric. Please see above discussion. Electronically signed by: Jason Garsia MD (06/18/2021 6:58 PM) [facility] (BASSAM CANO APRN) Heart Score: C/O Chest Pain: No Risk Factors: Risk Factors: DM, Current or recent (<one month) smoker, HTN, HLP, family history of CAD, obesity. Risk Scores: Score 0 - 3: 2.5% MACE over next 6 weeks - Discharge Home Score 4 - 6: 20.3% MACE over next 6 weeks - Admit for Clinical Observation Score 7 - 10: 72.7% MACE over next 6 weeks - Early Invasive Strategies (BASSAM CANO APRN) Course & Med Decision Making: Course & Med Decision Making Pertinent Labs and Imaging studies reviewed. (See chart for details) [] 26-year-old female presents with left-sided ear pain. Patient reports that the pain radiates into her neck. Patient has full range of motion of her neck. Afebrile. Denies taking anything for pain. Patient's pain treated while in the emergency room. Patient given 600 mg ibuprofen, 5/325 hydrocodone. Patient still reporting pain. Patient describes pain as a sharp pain that goes from her left ear down her throat. Patient given IM Benadryl. Patient is still reporting discomfort. Patient reports some improvement with pain. CT soft tissue neck ordered to rule out abnormality. CT of neck is unremarkable. Discussed results with patient. Advised patient she most likely has ear pain that is causing pain in her throat as well. Patient is able to manage her own secretions. No signs of distress. Sending patient home with medication for pain. Instructions to take ibuprofen and Tylenol as well. Discussed return precautions in length. Patient verbalizes understanding. (BASSAM CANO APRN) Course & Med Decision Making I was attending physician during date of service. ACID DIPPER saw and treated patient independently. Although I was present in the department, no assistance was requested prior to patient departure. Electronically signed, Dang Velasquez DO (DANG VELASQUEZ DO) Abi Disclaimer: Abi Disclaimer: This electronic medical record was generated, in whole or in part, using a voice recognition dictation system. (CANOBASSAM JANNIE) Departure Departure: Impression: Primary Impression: Left ear pain Disposition: HOME / SELF CARE / HOMELESS Condition: STABLE Referrals: PCP,UNKNOWN (PCP) Additional Instructions: You were seen in the emergency room for left-sided ear pain. You were given pain medication while in the emergency room. You were also given Benadryl. You can take ibuprofen and Tylenol at home for discomfort. You can also use [id number] nasal spray to help with some of your drainage and symptoms. Please return to the emergency room if you have worsening symptoms or concerns. EMERGENCY DEPARTMENT GENERAL DISCHARGE INSTRUCTIONS Thank you for coming to [facility] (ED) today and trusting us with you care. We trust that you had a positivie experience in our Emergency Department. If you wish to speak to the department management, you may call the director at [phone]. YOUR FOLLOW UP INSTRUCTIONS ARE FOLLOWS: 1. Do you have a private Doctor? If you do not have a private doctor, please ask for a resource list of physicians or clinics that may be able to assist you with follow up care. 2. The Emergency Physician has interpreted your x-rays. The X-Ray specialist will also review them. If there is a change in the findings, you will be notified in 48 hours when at all possible. 3. A lab test or culture has been done, your results will be reviewed and you will be notified if you need a change in treatment. ADDITIONAL INSTRUCTIONS AND INFORMATION: 1. Your care today has been supervised by a physician who is specially trained in emergency care. Many problems require more than one evaluation for a complete diagnosis and treatment. We recommend that you schedule your follow up appointment as recommended to ensure complete treatment of you illness or injury. If you are unable to obtain follow up care and continue to have a problem, or if your condition worsens, we recommend that you return to the ED. 2. We are not able to safely determine your condition over the phone nor are we able to give sound medical advice over the phone. For these safety reasons, if you call for medical advice we will ask you to come to the ED for further evaluation. 3. If you have any questions regarding these discharge instructions please call the ED at [phone]. SAFETY INFORMATION: In the interest of safety, wellness, and injury prevention; we encourage you to wear your sealbelt, if you smoke; quite smoking, and we encourage family to use a protective helmet for bicycling and other sporting events that present an increased risk for head injury. IF YOUR SYMPTOMS WORSEN OR NEW SYMPTOMS DEVELOP, OR YOU HAVE CONCERNS ABOUT YOUR CONDITION; OR IF YOUR CONDITION WORSENS WHILE YOU ARE WAITING FOR YOUR FOLLOW UP APPOINTMENT; EITHER CONTACT YOUR PRIMARY CARE DOCTOR, THE PHYSICIAN WHOSE NAME AND NUMBER YOU WERE GIVEN, OR RETURN TO THE ED IMMEDIATELY. Scripts Amoxicillin/Potassium Clav (AMOX TR-K CLV 875-125 MG TAB) 1 Each Tablet 1 TAB PO BID for aom for 7 Days, #14 TAB Prov: BASSAM CANO APRN 06/18/21 Hydrocodone Bit/Acetaminophen (HYDROCODONE-APAP 5-325 ) 1 Each Tablet 0.5-1 TAB PO PRN Q6HRS PRN for PAIN for 2 Days, #12 TAB 0 Refills Prov: BASSAM CANO APRN 06/18/21 BASSAM CANO APRN Jun 18, 2021 17:27 DANG VELASQUEZ DO Jun 22, 2021 11:33
[2021-06-18] MEDS ORDERED: diphenhydrAMINE 50 MG/ML VIAL IM ONE (17:30)
--- NOTE | 2021-06-18 19:00 | RAD ---
PQRS Compliance Statement: One or more of the following individualized dose reduction techniques were utilized for this examinat ion: 1. Automated exposure control 2. Adjustment of the mA and/or kV according to patient size 3. Use of iterative reconstruction technique CT NECK SOFT TISSUE WITHOUT CONTRAST Clinical Indication: Reason: neck pain / Comparison: None. TECHNIQUE: Helical CT imaging of the soft tissues of the neck is performed without IV contrast. Findings: Sensitivity for detection of pathology is significantly decreased without IV contrast. The thyroid and submandibular glands are symmetric. The parotid glands are asymmetric. The right is predominantly fatty. There is haziness of the fat of the left parotid gland. This haziness could be due to inflammation suggesting parotitis. A sialolith is not seen. Alternatively the asymmetry could be due to fatty replacement of the right parotid gland . It is possible these findings are incidental or normal for this patient in the absence of localized pain or swelling. The epiglottis, aryepiglottic folds, vallecula, and piriform sinuses are normal. There are a few subc entimeter cervical lymph nodes. There is no cervical adenopathy. The lung apices are clear. There is dental cavity of a right maxilla molar. There is no obvious periodontal abscess. The ostiomeatal complexes are patent. The cervical spine alignment is maintained. IMPRESSION: 1. There is dental cavity of a right maxilla molar. 2. The parotid glands are asymmetric. Please see above discussion. Electronically signed by: Jason Garsia MD (06/18/2021 6:58 PM) [facility]
[2021-06-18] MEDS ORDERED: HYDR-2155 PO (19:20)
[2021-06-18] MEDS ORDERED: AMOX1TAB11 PO (19:25)
== END 2021-06-18 19:36 | disposition home or self-care (01) ==
LOC: ER 15:51
DX: H92.02 Otalgia, left ear (principal)
CPT/HCPCS: 70490; 96372; 99284; J1200; Q0162